=== PATIENT | female | born 1945 | race American Indian/Alaskan Native ===

== ENCOUNTER 2018-12-25 09:20 | Inpatient (IN) | payer MEDICARE ==
[2018-12-25 09:52] LABS: Basophils % (Auto) 0.7 % (0.0-1.8); Eosinophils # (Auto) 0.3 K/mm3 (0.0-0.4); Eosinophils % (Auto) 5.1 % (0.0-4.3); Hematocrit 35.9 % (30.3-42.9); Hemoglobin 11.5 gm/dl (10.1-14.3); Lymphocytes # (Auto) 1.6 K/mm3 (1.2-5.4); Mean Corpuscular HGB Conc 32 % (30-34); Mean Corpuscular Volume 71 fl (79-97); Monocytes # (Auto) 0.4 K/mm3 (0.0-0.8); Monocytes % (Auto) 7.1 % (0.0-7.3); Platelet Count 177 K/mm3 (140-440); Red Blood Count 5.03 M/mm3 (3.65-5.03); Red Cell Distribution Width 15.8 % (13.2-15.2)
[2018-12-25] MEDS ORDERED: ACTIVASE ONE (09:53)
[2018-12-25] MEDS ORDERED: NACL 0.9% 0 ML ONE (09:53)
[2018-12-25 09:59] LABS: BUN/Creatinine Ratio 17; Blood Urea Nitrogen 20 mg/dL (7-17); Calcium 9.1 mg/dL (8.4-10.2); Hemolysis Index 0
[2018-12-25] MEDS ORDERED: NORMODYNE IV ONE ×3 (09:59→11:45)
--- NOTE | 2018-12-25 10:13 | Emergency Department Report ---
ED Neuro Deficit HPI - General Stated Complaint: HEADACHE Time Seen by Provider: 12/25/18 09:41 - History of Present Illness Initial Comments: [facility] [facility] Tele[facility]urology Consult Services Date of Service: 12/25/2018 09:28:51 Impression: RO Acute Ischemic Stroke Left Hemispheric Comments: acute right face/arm weakness and lethargy - concerning for L frontotemporal vs subcortical stroke. The risks/benefits/alternatives of IV tpa, including a 6 percent risk of brain bleed and 3 percent risk of , was reviewed with the patient's daughters, and they declined IV tpa. Mechanism of Stroke: Possible Thromboembolic Possible Cardioembolic Metrics: Last Known Well: 12/25/2018 09:21:47 [employer] Notification Time: 12/25/2018 09:27:57 Arrival Time: 12/25/2018 09:20:52 Stamp Time: 12/25/2018 09:28:51 Time First Login Attempt: 12/25/2018 09:35:39 Video Start Time: 12/25/2018 09:35:39 Symptoms: right arm weakness NIHSS Start Assessment Time: 12/25/2018 09:39:13 tPA Verbal Order Time: 12/25/2018 09:55:51 Patient is not a candidate for tPA. Patient was not deemed candidate for tPA thrombolytics because of declined by the patient and her daughter; she acknowledged understanding that her symptoms may be worse or may not get any better without treatment with tpa.. Weight Noted by Staff: 91 kg Video End Time: 12/25/2018 10:06:27 CT head showed no acute hemorrhage or acute core infarct. CT head was reviewed. Advanced imaging CTA head and neck obtained. ER physician notified of the decision on thrombolytics management. Our recommendations are outlined below. Recommendations: start ASA if CT head is neg for hemorrhage. Recommended Scan: MRI Head Lipid Panel to Be Obtained, if Not Done in the Last Three Months Therapies: Physical Therapy, Occupational Therapy, Speech Therapy Assessment When Applicable Dysphaghia Screen: Swallow Evaluation, Bedside NPO Until Swallow Evaluation DVT prophylaxis: Lovenox or LMW Heparin Disposition: Follow up with Teleneurology Follow up Sign Out: Discussed with Emergency Department Provider History of Present Illness: Patient is a 73 years old Female. Patient was brought by EMS for symptoms of right arm weakness 73 yo woman with a hx of stroke causing right weakness (from which she recovered to normal) that came to the ED for htn and headache. While in triage at approx 0920, she developed acute onset right arm weakness. She takes ASA daily but no other blood thinners. CT head showed no acute hemorrhage or acute core infarct. CT head was reviewed. Examination: 1A: Level of Consciousness - Arouses to minor stimulation + 1 1B: Ask Month and Age - Both Questions Right + 0 1C: Blink Eyes & Squeeze Hands - Performs Both Tasks + 0 2: Test Horizontal Extraocular Movements - Normal + 0 3: Test Visual Dykes - No Visual Loss + 0 4: Test Facial Palsy (Use Grimace if Obtunded) - Minor paralysis (flat nasol abial fold, smile asymetry) + 1 5A: Test Left Arm Motor Drift - No Drift for 10 Seconds + 0 5B: Test Right Arm Motor Drift - Drift, but doesn't hit bed + 1 6A: Test Left Leg Motor Drift - No Drift for 5 Seconds + 0 6B: Test Right Leg Motor Drift - No Drift for 5 Seconds + 0 7: Test Limb Ataxia (FNF/Heel-Davis) - No Ataxia + 0 8: Test Sensation - Normal; No sensory loss + 0 9: Test Language/Aphasia - Normal; No aphasia + 0 10: Test Dysarthria - Mild-Moderate Dysarthria: Slurring but can be understood + 1 11: Test Extinction/Inattention - No abnormality + 0 NIHSS Score: 4 Patient was informed the Neurology Consult would happen via TeleHealth consult by way of interactive audio and video telecommunications and consented to receiving care in this manner. Due to the immediate potential for life-threatening deterioration due to underlying acute neurologic illness, I spent 35 minutes providing critical care. This time includes time for face to face visit via telemedicine, review of medical records, imaging studies and discussion of findings with providers, the patient and/or family. Dr Jose R Ayon [employer] - Related Data Allergies/Adverse Reactions: Allergies Allergy/AdvReac Type Severity Reaction Status Date / Time No Known Allergies Allergy Unverified 12/25/18 09:22 ED Review of Systems ROS: Stated complaint: HEADACHE Other details as noted in HPI ED Neuro Physical Exam - General Suspected Stroke: Yes - NIHSS Assessment Interval: Baseline 1a. Level of Consciousness: alert/keenly responsive 1b. LOC Questions: answers both correctly 1c. LOC Commands: performs tasks correctly 2. Best Gaze: normal 3. Visual: no visual loss 4. Facial Palsy: minor paralysis 5b. Motor Arm Right: drift 5a. Motor Arm Left: no drift 6a. Motor Leg Left: no drift 6b. Motor Leg Right: no drift 7. Limb Ataxia: absent 8. Sensory: normal 9. Best Language: no aphasia 10. Dysarthria: normal 11. Extinction/Inattention: no abnormality Total Score: 2 Stroke Severity: Minor Stroke - Lab Data Result diagrams: 12/25/18 09:31 12/25/18 09:31 Lab Results 12/25/18 12/25/18 Range/Units 09:31 09:31 WBC 5.9 (4.5-11.0) K/mm3 RBC 5.03 (3.65-5.03) M/mm3 Hgb 11.5 (10.1-14.3) gm/dl Hct 35.9 (30.3-42.9) % MCV 71 L (79-97) fl MCH 23 L (28-32) pg MCHC 32 (30-34) % RDW 15.8 H (13.2-15.2) % Plt Count 177 (140-440) K/mm3 Lymph % (Auto) 27.0 (13.4-35.0) % [place] % (Auto) 7.1 (0.0-7.3) % Eos % (Auto) 5.1 H (0.0-4.3) % Baso % (Auto) 0.7 (0.0-1.8) % Lymph # 1.6 (1.2-5.4) K/mm3 [place] # 0.4 (0.0-0.8) K/mm3 Eos # 0.3 (0.0-0.4) K/mm3 Baso # 0.0 (0.0-0.1) K/mm3 Seg Neutrophils % 60.1 (40.0-70.0) % Seg Neutrophils # 3.6 (1.8-7.7) K/mm3 Sodium 138 (137-145) mmol/L Potassium 4.2 (3.6-5.0) mmol/L Chloride 102.9 (98-107) mmol/L Carbon Dioxide 25 (22-30) mmol/L Anion Gap 14 mmol/L BUN 20 H (7-17) mg/dL Creatinine 1.2 (0.7-1.2) mg/dL Estimated GFR 44 ml/min BUN/Creatinine Ratio 17 % Glucose 115 H (65-100) mg/dL Calcium 9.1 (8.4-10.2) mg/dL Troponin T < 0.010 (0.00-0.029) ng/mL Critical care attestation.: If time is entered above; I have spent that time in minutes in the direct care of this critically ill patient, excluding procedure time. ED Disposition Clinical Impression: Stroke Disposition: [id number] OP ADMIT IP TO THIS HOSP Is pt being admited?: Yes Condition: Stable
[2018-12-25 10:17] LABS: Partial Thromboplastin Time 25.5 Sec. (24.2-36.6)
--- NOTE | 2018-12-25 10:17 | Cat Scan Report ---
CT head without contrast Clinical history: Neurological deficits FINDINGS: No previous exams are available for comparison. The motion degrades the image quality at. H owever, there is extensive cerebral white matter disease most consistent with microvascular angiopath y. The findings include the ganglia capsular regions at. Correlation would be needed regarding underl kole acute process given the history and extent of findings at. There is an old infarct involving the left thalamus. There is mild cerebral atrophy. The ventricular system is correspondingly appropriate in size and con figuration. There is no clear CT evidence of acute intracranial hemorrhage or significant mass effect . There is focal opacification involving the left ethmoid sinus at. All CT scans at this location are performed using the CT dose reduction for [employer] by means of automated exposure control. IMPRESSION: There is extensive microvascular angiopathy as detailed above without CT evidence of acute intracrani al hemorrhage. The findings were called emergently to Dr. Navarrete in the ER at 9:10 AM per the code stroke protocol. Signer Name: Davis Delgado MD Signed: 12/25/2018 10:13 AM Workstation Name: [id number]
[2018-12-25] MEDS ORDERED: TYLENOL PO ONE (11:44)
[2018-12-25] MEDS ORDERED: MORPHINE IV ONE (11:47)
[2018-12-25] MEDS ORDERED: ZOFRAN IV ONE ×2 (11:47→13:12)
--- NOTE | 2018-12-25 12:01 | Cat Scan Report ---
CTA HEAD AND NECK WITH CONTRAST HISTORY: Acute CVA COMPARISON: CT head without contrast performed the same day TECHNIQUE: Routine non-contrast CT Head, post-contrast CTA of the head, post-contrast CTA of the neck and post-contrast CT Head are performed. 3-D/MIP reformats postprocessed. Percentage stenosis is de termined by direct quantitative measurements of diseased internal carotid artery diameter compared wi th normal distal internal carotid artery reference segments or by criteria similar to NASCET where ap plicable. All CT scans at this location are performed using CT dose reduction for ALARA by means of a utomated exposure control.. CONTRAST: 100 ml of Omnipaque 350 FINDINGS: CTA HEAD: Intracranial vertebral arteries: No significant abnormality. Basilar artery: No significant abnormality. Posterior cerebral arteries: No significant abnormality. Intracranial internal carotid arteries: Moderate diffuse calcific plaques are identified to the tru nous and supraclinoid ICAs with stenosis estimated at 50-60% bilaterally. Anterior cerebral arteries: No significant abnormality. Middle cerebral arteries: No significant abnormality. Dural venous sinuses:Not optimally opacified. No significant abnormality. CTA NECK: Aortic arch: No significant abnormality. Cervical vertebral arteries: No significant abnormality. Common carotid arteries: No significant abnormality. Cervical internal carotid arteries: No significant abnormality. Additional findings: Small bilateral posterior communicating arteries are identified. No aneurysm or dissection. IMPRESSION: No evidence for large vessel occlusion, aneurysm or dissection. Moderate atherosclerotic disease in the cavernous and supraclinoid ICAs bilaterally as described. Signer Name: Darren Capps Jr, MD Signed: 12/25/2018 11:57 AM Workstation Name: [id number]
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
--- NOTE | 2018-12-25 13:08 | History and Physical Report ---
History of Present Illness Chief complaint: She is weak on her right side. History of present illness: 73 YO Female with HTN, CVA, DM, GERD, HLD, Obesity presents to ED for evaluation. Pt is lethargic and unable to provide history. Pt history provided by her daughter who is at bedside during exam and interview. As per daughter, the patient was in her usual state of health this morning around 0900 hrs. Pt daughter reports that patient became confused, and reported a headache, right arm numbness. Pt blood pressure was checked, and the patient was found to have SBP greater than 200mmhg. EMS notified and upon arrival the patient was found to be in distress with a neurologic deficit. A code stroke was called and the patient was transported to [facility]. Pt seen and evaluated in ED and found to have symptoms consistent with CVA, Encephalopathy. Teleneurology consulted and patient deemed not to be a candidate for TPA. Pt admitted to Telemetry and initiated on CVA protocol. No further history obtainable. No prior admission for review. All listed medication reconciled at time of admission. Past History Past Medical History: diabetes, GERD (a), hypertension, hyperlipidemia, stroke Past Surgical History: No surgical history, Other (reviewed) Social history: single. denies: smoking, alcohol abuse, prescription drug abuse Family history: diabetes, hypertension Medications and Allergies Allergies Allergy/AdvReac Type Severity Reaction Status Date / Time metoclopramide [From Reglan] Allergy Unknown Verified 12/25/18 10:57 Home Medications Medication Instructions Recorded Confirmed Last Taken Type Aspirin 325 mg PO QDAY 12/25/18 12/25/18 12/25/18 History Docusate Sodium [Colace] 100 mg PO DAILY 12/25/18 12/25/18 12/25/18 History Labetalol [Labetalol 100mg TAB] 100 mg PO BID 12/25/18 12/25/18 12/24/18 History Linagliptin [Tradjenta] 5 mg PO QDAY 12/25/18 12/25/18 12/24/18 History Losartan [Cozaar] 50 mg PO QDAY 12/25/18 12/25/18 12/24/18 History Omeprazole 20 mg PO QDAY 12/25/18 12/25/18 12/24/18 History Rosuvastatin Calcium [Crestor] 10 mg PO DAILY 12/25/18 12/25/1812/24/19 History metFORMIN XR [Glucophage XR] 500 mg PO Q12H 12/25/18 12/25/18 12/24/18 History Review of Systems ROS unobtainable: due to mental status Exam - Constitutional Vitals: Temp Pulse Resp BP Pulse Ox 99.6 F 91 H 14 210/103 100 12/25/18 11:03 12/25/18 11:03 12/25/18 11:03 12/25/18 11:03 12/25/18 11:03 General appearance: Present: mild distress, obese - EENT Eyes: Present: miosis - Neck Neck: Present: supple, normal ROM - Respiratory Respiratory effort: normal Respiratory: bilateral: CTA - Cardiovascular Heart Sounds: Present: S1 & S2. Absent: rub, click - Extremities Extremities: pulses symmetrical, No edema Peripheral Pulses: within normal limits - Abdominal General gastrointestinal: Present: soft, non-tender, non-distended, normal bowel sounds Female genitourinary: Present: normal - Integumentary Integumentary: Present: clear, warm, dry - Musculoskeletal Musculoskeletal: right sided weakness - Psychiatric Psychiatric: no appropriate mood/affect, no intact judgment & insight, no memory intact - Neurologic Neurologic: CNII-XII intact, focal deficits, moves all extremities, no gait normal Results - Labs CBC & Chem 7: 12/25/18 09:31 12/25/18 09:31 Labs: Abnormal lab results 12/25/18 12/25/18 12/25/18 Range/Units 09:31 09:31 09:43 MCV 71 L (79-97) fl MCH 23 L (28-32) pg RDW 15.8 H (13.2-15.2) % Eos % (Auto) 5.1 H (0.0-4.3) % BUN 20 H (7-17) mg/dL Glucose 115 H (65-100) mg/dL POC Glucose 121 H (70-105) Assessment and Plan - Patient Problems (1) Acute CVA (cerebrovascular accident) Current Visit: Yes Status: Acute Plan to address problem: Stroke Protocol: Admit to Telemetry, CT head, neuro checks, PT/OT/Speech therapy, Lipid panel, statin therapy, neurology consulted, antiplatelet therapy. further testing as per neurology team. (2) Encephalopathy Current Visit: Yes Status: Acute Plan to address problem: CT head, neuro check, seizure precautions, supportive care, (3) HTN (hypertension) Current Visit: Yes Status: Acute Qualifiers: Hypertension type: essential hypertension Qualified Code(s): I10 - Essential (primary) hypertension Plan to address problem: monitor BP q shift, permissive hypertension overnight. (4) HLD (hyperlipidemia) Current Visit: Yes Status: Acute Qualifiers: Hyperlipidemia type: mixed hyperlipidemia Qualified Code(s): E78.2 - Mixed hyperlipidemia Plan to address problem: low cholesterol low fat diet, increased physical activity at discharge, statin therapy, (5) Diabetes Current Visit: Yes Status: Acute Plan to address problem: ADA diet, insulin, accu check, (6) Obesity (BMI 30-39.9) Current Visit: Yes Status: Acute Plan to address problem: Balanced diet, increased physical activity at discharge. (7) DVT prophylaxis Current Visit: Yes Status: Acute Plan to address problem: SCD to BLE while in bed,
[2018-12-25] MEDS ORDERED: MILK OF MAGNESIA PO PRN (13:09)
[2018-12-25] MEDS ORDERED: ZOFRAN IV PRN (13:09)
[2018-12-25] MEDS ORDERED: PHENERGAN PR PRN (13:09)
[2018-12-25] MEDS ORDERED: SODIUM CHLORIDE FLUSH SYRINGE 10 ML IV PRN (13:09)
[2018-12-25] MEDS ORDERED: REGLAN PO PRN (13:09)
[2018-12-25] MEDS ORDERED: DULCOLAX PR PRN (13:09)
[2018-12-25] MEDS ORDERED: TYLENOL PO PRN (13:09)
--- NOTE | 2018-12-25 14:10 | Vascular Lab Report ---
BILATERAL CAROTID DOPPLER ULTRASOUND INDICATION : stroke TECHNIQUE: Grayscale and color Doppler imaging performed through the neck. COMPARISON: None FINDINGS: Right: There is mild partially calcified irregular plaque in the proximal ICA. Peak systolic veloci ty in the CCA is 59 cm/s with end-diastolic velocity of 10 cm/s. Peak systolic velocity in the proxim al ICA is 51 cm/s with end-diastolic velocity of 17 cm/s. ICA to CCA ratio is less than 2. There is a ntegrade flow in the ECA and the vertebral artery. Left: There is mild partially calcified irregular plaque in the proximal ICA. Peak systolic velocity in the CCA is 60 cm/s with end-diastolic velocity of 14 cm/s. Peak systolic velocity in the proximal ICA is 42 cm/s with end-diastolic velocity of 13 cm/s. ICA to CCA ratio is less than 2. There is ante grade flow in the ECA and the vertebral artery. IMPRESSION: No hemodynamically significant stenosis by NASCET criteria. There is less than 50% lumina l narrowing in both carotid systems. Signer Name: Darren Capps Jr, MD Signed: 12/25/2018 2:06 PM Workstation Name: [id number]
[2018-12-26] MEDS ORDERED: D5/0.45NS 1,000 ML IV SCH (01:00)
[2018-12-26] MEDS: MORPHINE IV PRN (01:03)
[2018-12-26 06:11] LABS: Chol/HDL Ratio 2.17 %
[2018-12-26] MEDS ORDERED: APRESOLINE IV PRN (08:03)
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
[2018-12-26] MEDS ORDERED: NON-FORMULARY (Rosuvastatin Calcium [Crestor] 10 MG) PO SCH (10:00)
[2018-12-26] MEDS: COZAAR PO SCH (10:13)
[2018-12-26] MEDS: ASPIRIN PO SCH (10:13)
[2018-12-26] MEDS: NORMODYNE PO SCH (10:14)
[2018-12-26] MEDS: COLACE PO SCH (10:14)
[2018-12-26] MEDS ORDERED: ATIVAN ONE (10:34)
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
[2018-12-26 11:13] LABS: Hematocrit 39.6 % (30.3-42.9); Hemoglobin 12.6 gm/dl (10.1-14.3); Mean Corpuscular HGB Conc 32 % (30-34); Mean Corpuscular Volume 71 fl (79-97); Platelet Count 203 K/mm3 (140-440); Red Blood Count 5.61 M/mm3 (3.65-5.03); Red Cell Distribution Width 15.6 % (13.2-15.2)
--- NOTE | 2018-12-26 11:18 | Event Note ---
Date: 12/26/18 Discussed with Teleneurology, Ordered requested test. Repeat CT head and neck, EEG, Keppra 1000mg x 1 then 500 mg iv bid. Start on fluids for renal protection
--- NOTE | 2018-12-26 11:20 | Cat Scan Report ---
CT HEAD WITHOUT CONTRAST INDICATION : neuro deficits. Code stroke TECHNIQUE: Axial imaging performed from the skull apex through the skull base without the use of con trast. Sagittal and coronal reformatted images. All CT scans at this location are performed using C T dose reduction for ALARA by means of automated exposure control. COMPARISON: 12/25/2018 FINDINGS: Parenchyma: Mild cortical volume loss and moderate chronic microangiopathy in the white matter is ag ain demonstrated. Chronic focal infarct in the left thalamus measures 1.4 x 0.6 cm. There is no evide nce for hemorrhage, mass, mass effect or extra-axial fluid collection. No large area of acute ischemi a is appreciated on noncontrast CT. Ventricles: Ventricles are normal in size and appear symmetric. Bones: No acute osseous abnormality. Sinuses: Sinuses and mastoid air cells are clear. Soft tissues: Soft tissues including the orbits appear normal. IMPRESSION: Volume loss and extensive chronic white matter changes. Chronic left thalamic infarct. No significant change since yesterday's exam. These findings were discussed with Dr. West at 1109 EST. Signer Name: Darren Capps Jr, MD Signed: 12/26/2018 11:16 AM Workstation Name: [id number]
[2018-12-26 11:24] LABS: Calcium 9.1 mg/dL (8.4-10.2); INR 1.09 (0.87-1.13)
[2018-12-26 11:25] LABS: Partial Thromboplastin Time 25.7 Sec. (24.2-36.6); Thrombin Time 18.3 Sec. (15.1-19.6)
[2018-12-26] MEDS ORDERED: ATIVAN IV ONE (11:27)
--- NOTE | 2018-12-26 12:14 | Consultation ---
Past History Past Medical History: diabetes, GERD (a), hypertension, hyperlipidemia, stroke Past Surgical History: No surgical history, Other (reviewed) Social history: single. denies: smoking, alcohol abuse, prescription drug abuse Family history: diabetes, hypertension Medications and Allergies Allergies Allergy/AdvReac Type Severity Reaction Status Date / Time metoclopramide [From Reglan] Allergy Unknown Verified 12/25/18 10:57 Home Medications Medication Instructions Recorded Confirmed Last Taken Type Aspirin 325 mg PO QDAY 12/25/18 12/25/18 12/25/18 History Docusate Sodium [Colace] 100 mg PO DAILY 12/25/18 12/25/18 12/25/18 History Labetalol [Labetalol 100mg TAB] 100 mg PO BID 12/25/18 12/25/18 12/24/18 History Linagliptin [Tradjenta] 5 mg PO QDAY 12/25/18 12/25/18 12/24/18 History Losartan [Cozaar] 50 mg PO QDAY 12/25/18 12/25/18 12/24/18 History Omeprazole 20 mg PO QDAY 12/25/18 12/25/18 12/24/18 History Rosuvastatin Calcium [Crestor] 10 mg PO DAILY 12/25/18 12/25/18 12/24/18 History metFORMIN XR [Glucophage XR] 500 mg PO Q12H 12/25/18 12/25/18 12/24/18 History Active Meds: Active Medications Acetaminophen (Tylenol) 650 mg PO Q4H PRN PRN Reason: Pain, Mild (1-3) Aspirin (Aspirin) 325 mg PO QDAY [facility] Atorvastatin Calcium (Lipitor) 20 mg PO QHS [facility] Bisacodyl (Dulcolax) 10 mg [place] QDAY PRN PRN Reason: Constipation Docusate Sodium (Colace) 100 mg PO DAILY [facility] Hydralazine HCl (Apresoline) 10 mg IV Q4H PRN PRN Reason: Hypertension Dextrose/Sodium Chloride (D5/0.45ns) 1,000 mls @ 50 mls/hr IV DIRECT [facility] Last Admin: 12/26/18 00:45 Dose: 50 mls/hr Documented by: Sodium Chloride (Nacl 0.9% 1000 Ml) 1,000 mls @ 75 mls/hr IV DIRECT [facility] Labetalol HCl (Normodyne) 100 mg PO BID [facility] Linagliptin (Tradjenta) 5 mg PO QDDIAB [facility] Losartan Potassium (Cozaar) 50 mg PO QDAY [facility] Magnesium Hydroxide (Milk Of Magnesia) 30 ml PO Q4H PRN PRN Reason: Constipation Morphine Sulfate (Morphine) 2 mg IV Q4H PRN PRN Reason: Pain, Moderate (4-6) Last Admin: 12/26/18 01:03 Dose: 2 mg Documented by: Ondansetron HCl (Zofran) 4 mg IV Q8H PRN PRN Reason: Nausea And Vomiting Promethazine HCl (Phenergan) 25 mg [place] Q6H PRN PRN Reason: Nausea And Vomiting Sodium Chloride (Sodium Chloride Flush Syringe 10 Ml) 10 ml IV PRN PRN PRN Reason: LINE FLUSH Physical Examination - Vital Signs Vital Signs: Vital Signs BP 207/108 12/25/18 09:33 Results - Laboratory Findings CBC and BMP: 12/26/18 10:54 12/26/18 10:54 Abnormal Lab Findings: Abnormal Labs 12/25/18 12/25/18 12/25/18 09:31 09:31 09:43 RBC MCV 71 L MCH 23 L RDW 15.8 H Eos % (Auto) 5.1 H Sodium Chloride BUN 20 H Creatinine Glucose 115 H POC Glucose 121 H HDL Cholesterol 12/25/18 12/25/18 12/26/18 16:52 21:46 04:20 RBC MCV MCH RDW Eos % (Auto) Sodium Chloride BUN Creatinine Glucose POC Glucose 156 H 166 H HDL Cholesterol 63 H 12/26/18 12/26/18 12/26/18 07:55 10:37 10:54 RBC 5.61 H MCV 71 L MCH 23 L RDW 15.6 H Eos % (Auto) Sodium Chloride BUN Creatinine Glucose POC Glucose 175 H 175 H HDL Cholesterol 12/26/18 10:54 RBC MCV MCH RDW Eos % (Auto) Sodium 133 L Chloride 95.3 L BUN 23 H Creatinine 1.3 H Glucose 181 H POC Glucose HDL Cholesterol Assessment and Plan 73 YR OLD FEMALE WITH HIST OF HTN,DM,OLD STROKE WITH RESIDUAL RT ARM WEAKNESS, WHO CAME TO ER YESTERDAY WITH COMPLAIN OF SEVERE HEADACHE WHEN HER SYSTOLIC BP WAS NOTED TO BE 200MM OF HG.PATIENT DEVELOPED UMBNESS ON THE RT UPPER EXTREMITY WHILE IN TRIAGE, TELE NEURO WAS CONSULTED, RECOMMENDED TPA WHICH WAS DECLINED BY THE FAMILY MEMBERS. WAYNE WAS ADMITTED. THIS AM SHE WAS NOTED TO BE UNRESPONSIVE,WITH EYES ROLLED UP, AND LETHARGIC, CODE STROKE WAS CALLED AND EVALUATED BY TELE NEURO AGAIN, STARTED HER ON KEPPRA AND ORDERED EEG. PHYSICAL EXAMINATION/ PATIENT HIS VERBALLY UNRESPONSIVE, SHE WAS GIVEN ATIVAN 2MG, RESPONDS TO PAINFULT STIMULI BY FACIAL GRIMACING.DOES NOT OPEN HER EYES WHEN CALLED HER NAME.MOVES ALL FOUR EXTREMITIES. PUPILS REACT TO LIGHT. EXTRA OCULAR MOVEMENT IS INTACT. NO FACIAL ASYMMETRY WAS NOTED. REFLEXES ARE DECREASED IN ALL FOUR EXTREMITIES,WITH EQUIVOCAL TOE ON THE RIGHT SIDE. RESPONDS TO PAINFUL STIMULI IN ALL FOUR EXTREMITIES. IMPRESSION. 1.PATIENT SEEMED TO HAVE SEIZURE THIS MORNING, AND NURSES OBSERVED HER IN POST ICTAL STATES SEEMS FROM THE DESCRIPTION. RECOMMEND. 1. AGREE WITH TELE NEURO, KEPPRA 500MG BID. 2. MAINTAIN SEIZURE PRECAUTION 3. PLEASE SERUM ELECTROLYTES INCLUDING CALCIUM AND MAGNESIUM. 4. CONTINUE OTHER WORK UP RECOMMENDED BY THE TELE NEUROLOGIST.
--- NOTE | 2018-12-26 12:42 | Cat Scan Report ---
CTA NECK WITH CONTRAST HISTORY: Altered mental status, code stroke. COMPARISON: CTA neck performed 12/25/2018 TECHNIQUE: Routine CTA of the neck is performed. 3-D/MIP reformats were postprocessed. Percentage st enosis is determined by direct quantitative measurements of diseased internal carotid artery diameter compared with normal distal internal carotid artery reference segments or by criteria similar to STONE CET where applicable. All CT scans at this location are performed using CT dose reduction for ALARA b y means of automated exposure control.. CONTRAST: 60 ml of Omnipaque 350 FINDINGS: Aortic arch: No significant abnormality. Cervical vertebral arteries: No significant abnormality. Common carotid arteries: No significant abnormality. Cervical internal carotid arteries: No significant abnormality. Additional findings: None. IMPRESSION: 1. No significant abnormality. No change is demonstrated since yesterday's exam. Signer Name: Darren Capps Jr, MD Signed: 12/26/2018 12:38 PM Workstation Name: [id number]
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
[2018-12-26] MEDS ORDERED: NIPRIDE 50 MG in D5W 248 ML IV SCH (14:00)
[2018-12-26] MEDS ORDERED: KEPPRA 1,000 MG in D5W 100 ML IV ONE ×2 (15:00→19:28)
--- NOTE | 2018-12-26 15:08 | Cat Scan Report ---
CTA HEAD WITH CONTRAST HISTORY: Altered mental status; stroke COMPARISON: CTA of the brain from 12/25/2018 TECHNIQUE: Routine non-contrast CT Head, CTA of the head and post-contrast CT Head are performed. 3-D /MIP reformats postprocessed. All CT scans at this location are performed using CT dose reduction for ALARA by means of automated exposure control. CONTRAST: 100 ml of Omnipaque 350 FINDINGS: CTA Head: Intracranial vertebral arteries: Focal Nonstenotic calcified atheromatous plaque is seen along the me dial wall of intradural segment of right vertebral artery near the origin of right PICA. Right PICA o rigin is not seen well but right PICA is normal. Atheromatous changes are seen in the distal intradur al segment of the left vertebral artery. Basilar artery: Atheromatous changes are seen in the proximal mid segment and the basilar artery. Bas ilar tip is normal. Posterior cerebral arteries: No significant abnormality. Intracranial internal carotid arteries: Vascular calcification is seen in the internal carotid arteri es at the level of the cavernous segment. Internal carotid arteries are patent from skull base to ter mination. Ophthalmic segments from the calcification. This remains unchanged. Anterior cerebral arteries: No significant abnormality. Middle cerebral arteries: No significant abnormality. Dural venous sinuses:Not optimally opacified. No significant abnormality. Additional findings: None. IMPRESSION: 1. CTA findings remain unchanged. I do not see large vessel occlusion or dissection or aneurysm. Signer Name: Valdez Wheeler MD Signed: 12/26/2018 3:04 PM Workstation Name: [id number]
[2018-12-26] MEDS: NACL 0.9% 1000 ML 1,000 ML IV SCH (15:37)
[2018-12-26 18:00] LABS: Creatine Kinase MB 14.9 ng/mL (0.0-4.0)
[2018-12-26] MEDS ORDERED: LOPRESSOR IV PRN (18:36)
[2018-12-26] MEDS ORDERED: ASPIRIN PR ONE (20:00)
[2018-12-26] MEDS ORDERED: KEPPRA 1,000 MG/NS 0.75% 100ML 1,000 MG/100 ML BAG IV ONE (20:00)
[2018-12-26] MEDS ORDERED: TRIDIL DRIP 50MG/250ML 50 MG/250 ML BOTTLE IV SCH (21:00)
[2018-12-26] MEDS: KEPPRA 500 MG in D5W 100 ML IV SCH (21:28)
[2018-12-26] MEDS ORDERED: KEPPRA 500 MG in D5W 100 ML IV SCH (22:00)
[2018-12-27] MEDS: MORPHINE IV PRN (02:45)
--- NOTE | 2018-12-27 10:43 | Progress Note ---
Assessment and Plan The patient is stable from a cardiac status. Continue current management. Will consider ischemic workup when stabilized. The patient has been seen in conjunction with Dr. Cervantes, who agrees with the assessment and plan. - Patient Problems (1) Abnormal ECG Current Visit: Yes Status: Acute (2) Altered mental status Current Visit: Yes Status: Acute (3) Encephalopathy Current Visit: Yes Status: Acute (4) Hypertensive emergency Current Visit: Yes Status: Acute (5) Obesity (BMI 30-39.9) Current Visit: Yes Status: Acute (6) Diabetes Current Visit: Yes Status: Chronic (7) History of CVA (cerebrovascular accident) Current Visit: Yes Status: Chronic (8) Seizure Current Visit: Yes Status: Suspected Subjective Date of service: 12/27/18 Interval history: Patient is lying in bed, responsive only to noxious stimuli. Troponin elevated this morning. Telemetry reviewed - SR in 70s with ST-segment depression now, but ST overnight. Per daughter, patient becomes restless and agitated. Objective Vital Signs Temp Pulse Resp BP Pulse Ox 12/27/18 09:15 86 20 130/57 99 12/27/18 09:00 83 13 118/67 100 12/27/18 08:45 82 17 120/60 100 12/27/18 08:30 81 12 111/63 100 12/27/18 08:25 100 12/27/18 08:15 85 21 107/64 100 12/27/18 08:00 98.4 F 83 19 124/61 100 12/27/18 07:45 84 17 122/62 100 12/27/18 07:30 85 13 104/58 100 12/27/18 07:15 82 15 109/57 100 12/27/18 07:00 81 17 118/59 100 12/27/18 06:45 86 20 94/52 100 12/27/18 06:30 85 15 113/58 100 12/27/18 06:16 91 H 16 116/59 100 12/27/18 06:00 101 H 22 101/68 99 12/27/18 05:45 108 H 17 101/68 100 12/27/18 05:30 92 H 7 L 104/68 100 12/27/18 05:15 93 H 21 108/67 100 12/27/18 05:00 94 H 16 120/71 100 12/27/18 04:45 95 H 21 119/59 100 12/27/18 04:30 92 H 16 119/71 100 12/27/18 04:15 92 H 25 H 122/70 100 12/27/18 04:00 102 H 28 H 109/70 100 12/27/18 03:50 100.5 F H 12/27/18 03:45 98 H 21 105/64 100 12/27/18 03:30 100 H 22 133/63 100 12/27/18 03:15 100 H 19 140/71 100 12/27/18 03:00 102 H 22 126/69 100 12/27/18 02:46 130 H 16 164/119 100 12/27/18 02:30 127 H 13 141/101 100 12/27/18 02:15 114 H 25 H 141/101 12/27/18 02:00 108 H 13 139/89 100 12/27/18 01:45 106 H 21 140/71 98 12/27/18 01:30 117 H 13 142/89 90 12/27/18 01:15 112 H 16 143/84 98 12/27/18 01:00 99 H 22 137/82 12/27/18 00:45 104 H 19 142/89 100 12/27/18 00:42 22 98 12/27/18 00:30 103 H 15 147/73 100 12/27/18 00:16 92 H 23 148/76 99 12/27/18 00:00 128 H 13 174/110 99 12/26/18 23:46 130 H 12 159/108 97 12/26/18 23:30 100.1 F H 116 H 33 H 169/100 100 12/26/18 23:15 117 H 33 H 168/96 100 12/26/18 23:00 107 H 14 160/85 99 12/26/18 22:45 99 H 27 H 146/70 100 12/26/18 22:30 117 H 15 158/92 100 12/26/18 22:16 122 H 13 152/96 100 12/26/18 22:09 100 12/26/18 22:00 106 H 24 152/96 100 12/26/18 21:45 108 H 30 H 167/89 99 12/26/18 21:30 93 H 17 152/89 100 12/26/18 21:18 96 H 15 149/82 93 12/26/18 21:15 100 H 22 149/82 98 12/26/18 21:00 102 H 27 H 144/80 96 12/26/18 20:46 130 H 16 179/115 96 12/26/18 20:30 124 H 19 179/115 96 12/26/18 20:15 114 H 13 147/94 96 12/26/18 20:00 98.4 F 115 H 18 160/91 98 12/26/18 19:45 108 H 19 142/99 96 12/26/18 19:30 120 H 15 151/104 98 12/26/18 19:15 115 H 15 163/108 98 12/26/18 19:00 116 H 23 152/94 97 12/26/18 18:54 120 H 157/100 12/26/18 17:20 132 H 24 138/94 97 12/26/18 17:10 124 H 15 126/81 96 12/26/18 17:00 132 H 17 161/88 96 12/26/18 16:50 139 H 19 145/88 98 12/26/18 16:40 123 H 15 166/93 98 12/26/18 16:30 129 H 18 150/85 97 12/26/18 16:20 141 H 15 158/85 97 12/26/18 16:10 148 H 15 145/86 98 12/26/18 16:00 144 H 18 196/106 98 12/26/18 15:50 138 H 17 200/80 98 12/26/18 15:40 126 H 20 168/71 98 12/26/18 15:30 116 H 16 189/90 98 12/26/18 15:20 136 H 16 189/90 99 12/26/18 15:14 126 H 17 99 12/26/18 14:20 117 H 197/98 12/26/18 12:31 100 F H - Physical Examination General: No Apparent Distress HEENT: Positive: PERRL Neck: Positive: neck supple Cardiac: Positive: Reg Rate and Rhythm Lungs: Positive: Normal Exam Neuro: Positive: Other (responsive to noxious stimuli ) Abdomen: Positive: Unremarkable /Rectal: Other (deferred) Skin: Positive: Clear. Negative: Rash Musculoskeletal: No Pain Extremities: Present: normal. Absent: edema - Labs and Meds Cardiac Enzymes 12/26/18 Range/Units 16:57 CK-MB (CK-2) 14.9 H (0.0-4.0) ng/mL Coagulation 12/26/18 Range/Units 10:54 PT 13.8 (12.2-14.9) Sec. INR 1.09 (0.87-1.13) APTT 25.7 (24.2-36.6) Sec. CBC 12/26/18 Range/Units 10:54 WBC 10.8 (4.5-11.0) K/mm3 RBC 5.61 H (3.65-5.03) M/mm3 Hgb 12.6 (10.1-14.3) gm/dl Hct 39.6 (30.3-42.9) % Plt Count 203 (140-440) K/mm3 Comprehensive Metabolic Panel 12/26/18 Range/Units 10:54 Sodium 133 L (137-145) mmol/L Potassium 4.5 (3.6-5.0) mmol/L Chloride 95.3 L (98-107) mmol/L Carbon Dioxide 26 (22-30) mmol/L BUN 23 H (7-17) mg/dL Creatinine 1.3 H (0.7-1.2) mg/dL Glucose 181 H (65-100) mg/dL Calcium 9.1 (8.4-10.2) mg/dL - Imaging and Cardiology EKG: report reviewed, image reviewed Echo: report reviewed - Telemetry EKG Rhythm: Sinus Rhythm - EKG Sinus rhythms and dysrhythmias: sinus rhythm Repolarization changes or abnormalities: ST or T wave suggestive of ischemia
[2018-12-27] MEDS: KEPPRA 500 MG in D5W 100 ML IV SCH ×2 (11:00→22:00)
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
--- NOTE | 2018-12-27 11:52 | Consultation ---
History of Present Illness Consult date: 12/27/18 Requesting physician: MASSIMO DODSON Reason for consult: other (Hypertensive Emergency) History of present illness: PULMONARY/CCM CONSULT NOTE (Full dictation # [id number]) Please see dictated notes for full details Past History Past Medical History: diabetes, GERD (a), hypertension, stroke Past Surgical History: No surgical history, Other (reviewed) Social history: single, smoking (former ). denies: alcohol abuse, prescription drug abuse Family history: diabetes, hypertension Medications and Allergies Allergies Allergy/AdvReac Type Severity Reaction Status Date / Time metoclopramide [From Reglan] Allergy Unknown Verified 12/25/18 10:57 Home Medications Medication Instructions Recorded Confirmed Last Taken Type Aspirin 325 mg PO QDAY 12/25/18 12/25/18 12/25/18 History Docusate Sodium [Colace] 100 mg PO DAILY 12/25/18 12/25/18 12/25/18 History Labetalol [Labetalol 100mg TAB] 100 mg PO BID 12/25/18 12/25/18 12/24/18 History Linagliptin [Tradjenta] 5 mg PO QDAY 12/25/18 12/25/18 12/24/18 History Losartan [Cozaar] 50 mg PO QDAY 12/25/18 12/25/18 12/24/18 History Omeprazole 20 mg PO QDAY 12/25/18 12/25/18 12/24/18 History Rosuvastatin Calcium [Crestor] 10 mg PO DAILY 12/25/18 12/25/18 12/24/18 History metFORMIN XR [Glucophage XR] 500 mg PO Q12H 12/25/18 12/25/18 12/24/18 History Active Meds: Active Medications Acetaminophen (Tylenol) 650 mg PO Q4H PRN PRN Reason: Pain, Mild (1-3) Aspirin (Aspirin) 325 mg PO QDAY MANUEL Atorvastatin Calcium (Lipitor) 20 mg PO QHS MANUEL Last Admin: 12/26/18 21:28 Dose: Not Given Documented by: Bisacodyl (Dulcolax) 10 mg CO QDAY PRN PRN Reason: Constipation Docusate Sodium (Colace) 100 mg PO DAILY MANUEL Hydralazine HCl (Apresoline) 10 mg IV Q4H PRN PRN Reason: Hypertension Last Admin: 12/26/18 14:20 Dose: 10 mg Documented by: Sodium Chloride (Nacl 0.9% 1000 Ml) 1,000 mls @ 75 mls/hr IV DIRECT MANUEL Last Admin: 12/26/18 15:37 Dose: 75 mls/hr Documented by: Levetiracetam 500 mg/ Dextrose 105 mls @ 400 mls/hr IV Q12HR MANUEL Last Admin: 12/27/18 11:00 Dose: 400 mls/hr Documented by: Linagliptin (Tradjenta) 5 mg PO QDDIAB MANUEL Magnesium Hydroxide (Milk Of Magnesia) 30 ml PO Q4H PRN PRN Reason: Constipation Metoprolol Tartrate (Lopressor) 5 mg IV Q6HR PRN PRN Reason: Tachyarrhythmias Last Admin: 12/26/18 18:54 Dose: 5 mg Documented by: Morphine Sulfate (Morphine) 2 mg IV Q4H PRN PRN Reason: Pain, Moderate (4-6) Last Admin: 12/27/18 02:45 Dose: 2 mg Documented by: Ondansetron HCl (Zofran) 4 mg IV Q8H PRN PRN Reason: Nausea And Vomiting Promethazine HCl (Phenergan) 25 mg CO Q6H PRN PRN Reason: Nausea And Vomiting Sodium Chloride (Sodium Chloride Flush Syringe 10 Ml) 10 ml IV PRN PRN PRN Reason: LINE FLUSH Physical Examination Vital signs: Vital Signs BP 207/108 12/25/18 09:33 Results - Laboratory Findings CBC and BMP: 12/26/18 10:54 12/26/18 10:54 PT/INR, D-dimer PT 13.8 Sec. (12.2-14.9) 12/26/18 10:54 INR 1.09 (0.87-1.13) 12/26/18 10:54 Abnormal lab findings: Abnormal Labs 12/25/18 12/25/18 12/25/18 09:31 09:31 09:43 RBC MCV 71 L MCH 23 L RDW 15.8 H Eos % (Auto) 5.1 H Sodium Chloride BUN 20 H Creatinine Glucose 115 H POC Glucose 121 H Total Creatine Kinase CK-MB (CK-2) Troponin T HDL Cholesterol 12/25/18 12/25/18 12/26/18 16:52 21:46 04:20 RBC MCV MCH RDW Eos % (Auto) Sodium Chloride BUN Creatinine Glucose POC Glucose 156 H 166 H Total Creatine Kinase CK-MB (CK-2) Troponin T HDL Cholesterol 63 H 12/26/18 12/26/18 12/26/18 07:55 10:37 10:54 RBC 5.61 H MCV 71 L MCH 23 L RDW 15.6 H Eos % (Auto) Sodium Chloride BUN Creatinine Glucose POC Glucose 175 H 175 H Total Creatine Kinase CK-MB (CK-2) Troponin T HDL Cholesterol 12/26/18 12/26/18 12/26/18 10:54 13:03 16:57 RBC MCV MCH RDW Eos % (Auto) Sodium 133 L Chloride 95.3 L BUN 23 H Creatinine 1.3 H Glucose 181 H POC Glucose 203 H Total Creatine Kinase 2479 H CK-MB (CK-2) 14.9 H Troponin T 0.135 H* D HDL Cholesterol 12/26/18 12/27/18 12/27/18 17:43 00:17 03:36 RBC MCV MCH RDW Eos % (Auto) Sodium Chloride BUN Creatinine Glucose POC Glucose 180 H 157 H Total Creatine Kinase CK-MB (CK-2) Troponin T 0.154 H* HDL Cholesterol 12/27/18 05:13 RBC MCV MCH RDW Eos % (Auto) Sodium Chloride BUN Creatinine Glucose POC Glucose 117 H Total Creatine Kinase CK-MB (CK-2) Troponin T HDL Cholesterol
--- NOTE | 2018-12-27 11:54 | XRay Report ---
ABDOMEN SUPINE INDICATION / CLINICAL INFORMATION: tube placement. COMPARISON: None available. FINDINGS: Tip of the Dobbhoff tube is in the very distal stomach or possibly the proximal duodenum. Signer Name: Jb Wei MD Signed: 12/27/2018 11:50 AM Workstation Name: [id number]
--- NOTE | 2018-12-27 12:45 | XRay Report ---
CHEST 1 VIEW INDICATION: hypoxemia; hypertensive emergency COMPARISON: One day prior. FINDINGS: Support devices: Nasogastric tube passes in the stomach. Heart: Upper limits of normal Lungs/Pleura: No acute pulmonary or pleural findings. IMPRESSION: 1. No acute disease. Signer Name: Jb Wei MD Signed: 12/27/2018 12:40 PM Workstation Name: [email or web address]
[2018-12-27] MEDS: ASPIRIN PO SCH ×2 (13:10→13:12)
[2018-12-27] MEDS: COLACE PO SCH ×2 (13:10→13:12)
[2018-12-27] MEDS: TRADJENTA PO SCH ×3 (13:11→15:01)
[2018-12-27 13:32] LABS: Calcium 8.2 mg/dL (8.4-10.2)
[2018-12-27] MEDS: NACL 0.9% 1000 ML 1,000 ML IV SCH (16:50)
[2018-12-27] MEDS: NORMODYNE PO SCH (16:51)
[2018-12-27] MEDS: COZAAR PO SCH (16:51)
[2018-12-27] MEDS: HEPARIN SUB-Q SCH (21:56)
--- NOTE | 2018-12-28 00:51 | Consultation ---
PULMONARY CRITICAL CARE CONSULT NOTE CONSULTING PHYSICIAN: Dr. West. REASON FOR CONSULTATION: Hypertensive emergency. CHIEF COMPLAINT AND HISTORY OF PRESENT ILLNESS: As follows: The patient is a 73-year-old -[place] female with past medical history significant amongst other things for a prior cerebrovascular accident and obesity. She was initially brought into the Emergency Room for evaluation, a couple of days ago. She was lethargic. They reported that she was in her usual state of health until at presentation in the morning, she became confused, reported a headache. She developed some right numbness, systolic blood pressure was greater than 200 mmHg in the Emergency Room. She had symptoms consistent with a CVA. She was ultimately deemed not to be a candidate for TPA and admitted on the CVA protocol. It seems like while on the medical floor she did notice some EKG changes and continued to have high blood pressures. A code MET was called. Teleneurology requested repeat CT of the head and neck. She was given Keppra and transferred to the Emergency Room for initiation of a nitroprusside drip as well as for closer monitoring. When I stopped by to see her, she was resting in bed, was very difficult to arouse her. When she did open her eyes, she looked confused and went back to sleep. Did not follow any commands. I do not have any history of vomiting or overt aspiration. With regards to tobacco use or abuse, family had denied tobacco use. Family had also denied any trauma. The above is as much of the history of presentation as I have. PAST MEDICAL HISTORY: Hypertension, cerebrovascular accident, diabetes, gastroesophageal reflux disease, hyperlipidemia, obesity. PAST SURGICAL HISTORY: Denied. MEDICATIONS: She was on at the time I stopped by to see were reviewed, pertinent medications include the following: Tylenol 650 mg p.o. q. 4 hours p.r.n. mild pain or fevers, aspirin 325 mg p.o. daily, Lipitor 20 mg p.o. at bedtime, p.r.n. Dulcolax suppositories, docusate sodium 100 mg p.o. daily, hydralazine 10 mg IV q. 4 p.r.n. hypertension, Keppra 500 mg IV q. 12 hours, Tradjenta 5 mg p.o. daily. Lopressor 5 mg IV q. 6 hours p.r.n. tachyarrhythmias, Zofran 4 mg IV q. 8 hours p.r.n. nausea and vomiting, morphine sulfate 2 mg IV q. 4 hours p.r.n. moderate pain, Phenergan 25 mg q. 6 hours p.r.n. nausea and vomiting. She was also on a nitroprusside drip at 0.25 mcg per kilogram per minute. ALLERGIES: REGLAN, nature of this allergy is unknown. DIET: Obese lady. Family denies acute weight loss or gain. FAMILY AND SOCIAL HISTORY: Lives in the community. Family denies tobacco, alcohol, or illicit drug use or abuse. Remote history is unknown. Family history otherwise positive for diabetes and hypertension. REVIEW OF SYSTEMS: Unobtainable secondary to patient's medical and mental condition. Since she has been here, no gross hematochezia or melena, no gross hematuria. No hematemesis. No hemoptysis. No new hives or swellings on her body. She was believed to have had a seizure yesterday in the hospital. Review of system is otherwise unobtainable. PHYSICAL EXAMINATION: VITAL SIGNS: On examination at presentation in the Emergency Room, she was with a low-grade fever, temperature 99.9 degrees Fahrenheit, pulse of 92, respiratory rate of 14 and a blood pressure of 207/108 with a MAP of 141, O2 sats were 100%, inspired oxygen concentration at that time was not recorded. When I stopped by to see her, O2 sats were 100% that was on 2 liters nasal cannula. GENERAL: She is elderly looking obese -[place] female, normocephalic, atraumatic, resting in bed with sonorous breathing at times, snoring at times without use of accessory muscles of respiration. HEAD, EYES, EARS, NOSE AND THROAT: She was anicteric, no conjunctival erythema. Oropharynx was dry. Unable to have her to open her mouth. No gross jugular venous distention. She does have a large neck circumference. No thyromegaly. NECK: Grossly, there were no palpable lymph nodes in the supraclavicular or submandibular lymph node chains. LUNGS: Auscultation of both lung walker was unremarkable. Lungs were clear bilaterally with good bilateral air movement. HEART: Heart sounds 1 and 2 are heard. They were regular in rate and rhythm with a tight sounding systolic murmur in the mitral area. No rubs. ABDOMEN: Soft, full, bowel sounds are positive, nontender, no palpable hepatosplenomegaly. EXTREMITIES: Without overt digital clubbing, no cyanosis and no pedal edema. Pedal pulses were palpable and strong bilaterally. NEUROLOGIC: Pupils were equal, round, about 4 mm, reactive to light. Extraocular muscle movements appeared intact. After an ABG stick she did wake up. Not following commands appropriately, but she appeared to have a little bit of a right-sided deficit/weakness. The right foot appeared to be upgoing on the Babinski sign. However, no spasticity, no contractures. SKIN: Normal turgor in the areas examined without overt cellulitis or rash. LABORATORY DATA: From my review are as follows: Admission white cell count 5900, hemoglobin 11.5, hematocrit 35.9, platelet count 177. No manual differential. INR 1.0. Serum sodium 138, potassium 4.2, chloride 103, bicarbonate 25, BUN 20, creatinine 1.2, glucose was 115. Troponin within normal limits. LDL cholesterol 78, HDL cholesterol 63. Troponin this morning is up to 0.154. She had CT scans done of the head, extensive microvascular angiopathy, no acute intracranial hemorrhage, and an old left thalamic infarct. CTA of the neck, no significant abnormality. No large vessel occlusion, aneurysm or dissection. Carotid Dopplers were done, no hemodynamically significant stenosis. An echocardiogram was done, ejection fraction 45%-50% as well as diastolic dysfunction. There were wall motion abnormalities and elevated right ventricular systolic pressures at 50 mmHg. ASSESSMENT: 1. Hypertensive emergency. 2. Acute encephalopathy, toxic metabolic. 3. Clinical acute cerebrovascular accident. 4. Hyperlipidemia. 5. Diabetes. 6. Obesity. 7. Possible obstructive sleep apnea. 8. Acute kidney injury with a serum creatinine now 1.3. 9. Elevated serum troponins. 10. Elevated total CPK with CK of 2479. PLAN: She is going to be weaned off nitroprusside drip. Secondary stroke prevention measures have been initiated and will be continued. Neurology evaluation is ongoing. We will continue Keppra as on anti-seizure prophylaxis. I have advised the family that she will benefit from a sleep study post-discharge. I will get an arterial blood gas to ensure that we are getting adequate ventilation. Otherwise, we will deploy BiPAP p.r.n. Blood pressure control will be via oral antihypertensives at this point. Fall precautions have been instituted. Mobility protocol for pressure ulcer prophylaxis will be instituted. She is going to be placed on GI prophylaxis as well as DVT prophylaxis. Flu and pneumonia vaccination will be per protocol. Thank you very much for the consult Dr. West. We will follow along and make further recommendations as picture progresses/becomes clearer. She is critically ill on life-sustaining interventions including the nitroprusside therapy at risk of decompensation including the risk of . At this time, I spent about 35 minutes of critical care time without overlap and excluding any procedural time that may be necessary. JOB# [id number] SHONA/LASHAUN BANKS
[2018-12-28 06:11] LABS: Hematocrit 32.5 % (30.3-42.9); Hemoglobin 10.4 gm/dl (10.1-14.3); Mean Corpuscular HGB Conc 32 % (30-34); Mean Corpuscular Volume 71 fl (79-97); Platelet Count 159 K/mm3 (140-440); Red Blood Count 4.58 M/mm3 (3.65-5.03); Red Cell Distribution Width 15.3 % (13.2-15.2)
[2018-12-28 06:30] LABS: Albumin 3.2 g/dL (3.9-5); Calcium 8.1 mg/dL (8.4-10.2)
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
[2018-12-28] MEDS: HEPARIN SUB-Q SCH ×2 (09:45→22:27)
[2018-12-28] MEDS: COLACE PO SCH (09:45)
[2018-12-28] MEDS: TRADJENTA PO SCH (09:45)
[2018-12-28] MEDS: PEPCID PO SCH (09:45)
[2018-12-28] MEDS: ASPIRIN PO SCH (09:45)
[2018-12-28] MEDS: KEPPRA 500 MG in D5W 100 ML IV SCH ×2 (09:47→22:48)
--- NOTE | 2018-12-28 12:04 | Progress Note ---
Assessment and Plan Hypertensive emergency. Acute encephalopathy, toxic metabolic. Clinical acute cerebrovascular accident. Hyperlipidemia. Diabetes. Obesity. Possible obstructive sleep apnea. Acute kidney injury with a serum creatinine now 1.3. Elevated serum troponins. Elevated total CPK with CK of 2479. Subjective Date of service: 12/28/18 Principal diagnosis: HTNsive emergency; Ac encephalopathy; Acute CVA; DM II; Obesity; ROSAS Interval history: Patient is seen today for: Hypertensive emergency; Acute encephalopathy, toxic metabolic; Acute CVA; Hyperlipidemia; Diabetes; Obesity; Possible obstructive sl eep apnea; Acute kidney injury; Elevated serum troponins; Elevated total CPK Seen and examined at bedside; 24hour events reviewed; nursing and respiratory care staff consulted; no adverse overnight events reported to me; Objective Vital Signs - 12hr 12/28/18 12/28/18 04:12 07:23 Temperature 98.2 F 97.8 F Pulse Rate 82 79 Respiratory 20 12 Rate Blood Pressure 107/71 118/62 O2 Sat by Pulse 100 100 Oximetry CBC and BMP: 12/28/18 05:52 12/28/18 05:52 ABG, PT/INR, D-dimer: ABG POC ABG pH 7.480 (7.35-7.45) H 12/27/18 12:10 POC ABG pCO2 31.3 (35-45) L 12/27/18 12:10 POC ABG pO2 164 (80-105) H 12/27/18 12:10 POC ABG HCO3 23.3 (22-26 mml/L) 12/27/18 12:10 POC ABG Total CO2 24 (23-27mmol/L) 12/27/18 12:10 POC ABG O2 Sat 100 12/27/18 12:10 PT/INR, D-dimer PT 13.8 Sec. (12.2-14.9) 12/26/18 10:54 INR 1.09 (0.87-1.13) 12/26/18 10:54 Abnormal lab findings: Abnormal Labs 12/25/18 12/25/18 12/25/18 09:31 09:31 09:43 RBC MCV 71 L MCH 23 L RDW 15.8 H Eos % (Auto) 5.1 H POC ABG pH POC ABG pCO2 POC ABG pO2 Sodium Chloride BUN 20 H Creatinine Glucose 115 H POC Glucose 121 H Calcium AST Total Creatine Kinase CK-MB (CK-2) Troponin T Albumin HDL Cholesterol 12/25/18 12/25/18 12/26/18 16:52 21:46 04:20 RBC MCV MCH RDW Eos % (Auto) POC ABG pH POC ABG pCO2 POC ABG pO2 Sodium Chloride BUN Creatinine Glucose POC Glucose 156 H 166 H Calcium AST Total Creatine Kinase CK-MB (CK-2) Troponin T Albumin HDL Cholesterol 63 H 12/26/18 12/26/18 12/26/18 07:55 10:37 10:54 RBC 5.61 H MCV 71 L MCH 23 L RDW 15.6 H Eos % (Auto) POC ABG pH POC ABG pCO2 POC ABG pO2 Sodium Chloride BUN Creatinine Glucose POC Glucose 175 H 175 H Calcium AST Total Creatine Kinase CK-MB (CK-2) Troponin T Albumin HDL Cholesterol 12/26/18 12/26/18 12/26/18 10:54 13:03 16:57 RBC MCV MCH RDW Eos % (Auto) POC ABG pH POC ABG pCO2 POC ABG pO2 Sodium 133 L Chloride 95.3 L BUN 23 H Creatinine 1.3 H Glucose 181 H POC Glucose 203 H Calcium AST Total Creatine Kinase 2479 H CK-MB (CK-2) 14.9 H Troponin T 0.135 H* D Albumin HDL Cholesterol 12/26/18 12/27/18 12/27/18 17:43 00:17 03:36 RBC MCV MCH RDW Eos % (Auto) POC ABG pH POC ABG pCO2 POC ABG pO2 Sodium Chloride BUN Creatinine Glucose POC Glucose 180 H 157 H Calcium AST Total Creatine Kinase CK-MB (CK-2) Troponin T 0.154 H* Albumin HDL Cholesterol 12/27/18 12/27/18 12/27/18 05:13 12:10 12:57 RBC MCV MCH RDW Eos % (Auto) POC ABG pH 7.480 H POC ABG pCO2 31.3 L POC ABG pO2 164 H Sodium Chloride BUN 33 H Creatinine 1.5 H Glucose 136 H POC Glucose 117 H Calcium 8.2 L AST Total Creatine Kinase CK-MB (CK-2) Troponin T Albumin HDL Cholesterol 12/27/18 12/27/18 12/28/18 13:17 17:30 05:52 RBC MCV 71 L MCH 23 L RDW 15.3 H Eos % (Auto) POC ABG pH POC ABG pCO2 POC ABG pO2 Sodium Chloride BUN Creatinine Glucose POC Glucose 134 H 116 H Calcium AST Total Creatine Kinase CK-MB (CK-2) Troponin T Albumin HDL Cholesterol 12/28/18 05:52 RBC MCV MCH RDW Eos % (Auto) POC ABG pH POC ABG pCO2 POC ABG pO2 Sodium Chloride BUN 38 H Creatinine Glucose POC Glucose Calcium 8.1 L AST 42 H Total Creatine Kinase CK-MB (CK-2) Troponin T Albumin 3.2 L HDL Cholesterol
--- NOTE | 2018-12-28 13:38 | Progress Note ---
Assessment and Plan The patient is stable from a cardiac standpoint. Scheduled for Lexiscan stress test in AM. Keep NPO after midnight. Further recommendations pending. The patient has been seen in conjunction with Dr. Cervantes, who agrees with the assessment and plan. - Patient Problems (1) Abnormal ECG Current Visit: Yes Status: Acute (2) Altered mental status Current Visit: Yes Status: Acute (3) Encephalopathy Current Visit: Yes Status: Acute (4) Hypertensive emergency Current Visit: Yes Status: Acute (5) Obesity (BMI 30-39.9) Current Visit: Yes Status: Acute (6) Diabetes Current Visit: Yes Status: Chronic (7) History of CVA (cerebrovascular accident) Current Visit: Yes Status: Chronic (8) Seizure Current Visit: Yes Status: Suspected (9) Pulmonary hypertension Current Visit: Yes Status: Chronic Subjective Principal diagnosis: HTNsive emergency; Ac encephalopathy; Acute CVA; DM II; Obesity; ROSAS Interval history: The patient is vastly improved neurologically - she is awake and alert, oriented x3. Telemetry reviewed - SR in 80s. Echo from 12/25/18 reviewed: EF 45-50%, mild TR, RVSP 50 (mod pulm htn), impaired relaxation. Objective Last Vital Signs Temp 97.2 F L 12/28/18 12:36 Pulse 82 12/28/18 12:36 Resp 16 12/28/18 12:36 BP 143/77 12/28/18 12:36 Pulse Ox 97 12/28/18 12:36 - Physical Examination General: No Apparent Distress HEENT: Positive: PERRL Neck: Positive: neck supple Cardiac: Positive: Reg Rate and Rhythm Lungs: Positive: Normal Exam Neuro: Positive: Other (left-sided ) Abdomen: Positive: Unremarkable /Rectal: Other (deferred) Skin: Positive: Clear. Negative: Rash Musculoskeletal: No Pain Extremities: Present: normal. Absent: edema - Labs and Meds Cardiac Enzymes 12/28/18 Range/Units 05:52 AST 42 H (5-40) units/L CBC 12/28/18 Range/Units 05:52 WBC 7.5 (4.5-11.0) K/mm3 RBC 4.58 (3.65-5.03) M/mm3 Hgb 10.4 (10.1-14.3) gm/dl Hct 32.5 D (30.3-42.9) % Plt Count 159 (140-440) K/mm3 Comprehensive Metabolic Panel 12/27/18 12/28/18 Range/Units 12:57 05:52 Sodium 137 138 (137-145) mmol/L Potassium 4.1 3.9 (3.6-5.0) mmol/L Chloride 101.2 103.7 (98-107) mmol/L Carbon Dioxide 22 23 (22-30) mmol/L BUN 33 H 38 H (7-17) mg/dL Creatinine 1.5 H 1.2 (0.7-1.2) mg/dL Glucose 136 H 100 (65-100) mg/dL Calcium 8.2 L 8.1 L (8.4-10.2) mg/dL AST 42 H (5-40) units/L ALT 25 (7-56) units/L Alkaline Phosphatase 58 (35-129) units/L Total Protein 6.5 (6.3-8.2) g/dL Albumin 3.2 L (3.9-5) g/dL - Imaging and Cardiology EKG: report reviewed, image reviewed Echo: report reviewed (12/25/18: EF 45-50%, mild TR, RVSP 50 (mod pulm htn), impaired relaxation) - Telemetry EKG Rhythm: Sinus Rhythm - EKG Sinus rhythms and dysrhythmias: sinus rhythm Repolarization changes or abnormalities: ST or T wave suggestive of ischemia
[2018-12-29] MEDS ORDERED: LEXISCAN IV ONE ×2 (08:39→08:44)
[2018-12-29] MEDS: TRADJENTA PO SCH (08:55)
[2018-12-29] MEDS: HEPARIN SUB-Q SCH (12:29)
[2018-12-29] MEDS: KEPPRA 500 MG in D5W 100 ML IV SCH (12:29)
[2018-12-29] MEDS: PEPCID PO SCH (12:29)
[2018-12-29] MEDS: ASPIRIN PO SCH (12:29)
[2018-12-29] MEDS: COLACE PO SCH (12:29)
[2018-12-29 12:51] VITALS: BP 154/86
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
--- NOTE | 2018-12-29 14:09 | Progress Note ---
Assessment and Plan S/p lexiscan MPI stress test this AM which was negative. Currently stable cardiac status. Pt may discharge home from cardiology standpoint. Pt plans to return to [place] at discharge. They will follow up with pt's primary care team there. The patient has been seen in conjunction with Dr. Ceci Cool who agrees with the assessment and plan of care. - Patient Problems (1) Altered mental status Current Visit: Yes Status: Resolved (2) Seizure Current Visit: Yes Status: Suspected (3) Hypertensive emergency Current Visit: Yes Status: Acute (4) Abnormal ECG Current Visit: Yes Status: Acute (5) History of CVA (cerebrovascular accident) Current Visit: Yes Status: Chronic (6) Diabetes Current Visit: Yes Status: Chronic Subjective Date of service: 12/29/18 Principal diagnosis: HTNsive emergency; Ac encephalopathy; Acute CVA; DM II; Obesity; ROSAS Interval history: pt sitting up in chair, alert and oriented, no current complaints. seen s/p stress test this AM. in SR on tele. Objective Last Vital Signs Temp 97.9 F 12/29/18 12:45 Pulse 79 12/29/18 07:30 Resp 20 12/29/18 12:45 BP 154/86 12/29/18 12:45 Pulse Ox 97 12/29/18 07:30 - Physical Examination General: No Apparent Distress HEENT: Positive: PERRL Neck: Positive: neck supple Cardiac: Positive: Reg Rate and Rhythm, S1/S2 Lungs: Positive: Decreased Breath Sounds Neuro: Positive: Grossly Intact Abdomen: Positive: Unremarkable Skin: Positive: Clear. Negative: Rash Musculoskeletal: No Pain Extremities: Present: normal. Absent: edema - Imaging and Cardiology EKG: report reviewed, image reviewed Echo: report reviewed (12/25/18: EF 45-50%, mild TR, RVSP 50 (mod pulm htn), impaired relaxation) - EKG Sinus rhythms and dysrhythmias: sinus rhythm Repolarization changes or abnormalities: ST or T wave suggestive of ischemia
--- NOTE | 2018-12-30 04:15 | Treadmill Report ---
NUCLEAR STRESS TEST REFERRING PHYSICIAN: Hospitalist service. PROTOCOL: The patient is brought to the stress lab in a postoperative state, given 10 mCi of technetium 99m at rest. The patient underwent rest imaging. The patient underwent Lexiscan stress test. At peak stress, the patient was given 26 mCi of technetium 99m. Shortly thereafter, nuclear stress imaging. Raw imaging reveals significant GI motion artifact. SPECT imaging examined carefully in horizontal long axis, vertical long axis, short axis views. Technically difficult study with partial obscuration of the inferior wall due to GI artifact, but grossly no evidence of a significant fixed or reversible perfusion defects suggestive of prior infarction or ischemia. Gated wall motion reveals grossly normal LV function, estimated at 55%. No TID. CONCLUSIONS: 1. Technically difficult study due to body habitus, but probably grossly without evidence of significant ischemia or prior infarction. 2. Normal left ventricular function, estimated ejection fraction of 55%. SUGGEST: Clinical correlation. JOB# [id number] NORY/LASHAUN
[2018-12-30] MEDS ORDERED: KEPPRA PO SCH (10:00)
== END 2018-12-29 14:46 | disposition home or self-care (01) | DRG 64 ==
LOC: EDBD → ED 09:20 → 4A 13:10 → IMCU 12-26 11:11 → CC1 12-26 14:49 → 4A 12-27 14:58
PROVIDERS: ADMIT Internal Medicine; ATTEND Internal Medicine
PROC: 4A033R1 Measurement of Arterial Saturation, Peripheral, Percutaneous Approach (ICD-10-PCS; principal; 2018-12-27)
DX: I63.9 Cerebral infarction, unspecified (principal); N17.0 Acute kidney failure with tubular necrosis; I21.A1 Myocardial infarction type 2; G92 Toxic encephalopathy; I16.1 Hypertensive emergency; G81.91 Hemiplegia, unspecified affecting right dominant side; I10 Essential (primary) hypertension; E11.8 Type 2 diabetes mellitus with unspecified complications; E66.9 Obesity, unspecified; R56.9 Unspecified convulsions; R29.702 NIHSS score 2; R94.31 Abnormal electrocardiogram [ECG] [EKG]; E78.2 Mixed hyperlipidemia; Z53.29 Procedure and treatment not carried out because of patient's decision for other reasons; R47.01 Aphasia; K21.9 Gastro-esophageal reflux disease without esophagitis; I27.20 Pulmonary hypertension, unspecified; Z82.49 Family history of ischemic heart disease and other diseases of the circulatory system; Z68.30 Body mass index [BMI] 30.0-30.9, adult; Z83.3 Family history of diabetes mellitus; Z79.82 Long term (current) use of aspirin; Z79.899 Other long term (current) drug therapy
CPT/HCPCS: 36415; 36600; 70450; 70496; 70498; 71045; 74018; 78452; 80048; 80053; 80061; 82550; 82553; 82803; 82962; 84484; 85025; 85027; 85610; 85670; 85730; 93005; 93010; 93017; 93306; 93880; 94760; 96374; 96375; G0378; A9270-GY; A9502; J0360; J1644; J1953; J2060; J2270; J2405; J2785; J2997; J7030; Q9967